=== PATIENT | female | born 1940 | race Caucasian/White ===

== ENCOUNTER 2023-01-09 11:19 | Observation (INO) | payer MEDICARE ==
[~2023-01-09] VITALS: Ht 167.6 cm; Wt 103.9 kg
[~2023-01-09 11:19] MED LIST: ALLOPURINOL300 MG PO; ASPIRIN EC81 MG PO; ATENOLOL50 MG PO; CENTRUM SILVER1 EAC3 PO; CRESTOR10 MG PO; FUROSEMIDE20 MG PO; HYDROCHLOROTHIA25 MG PO; MELOXICAM7.5 MG PO; MULTIVITAMIN PO; NAPROXEN500 MG PO; NORVASC10 MG PO; OMEGA 3 PO; PANTOPRAZOLE SO40 MG PO; TEMAZEPAM30 MG PO
[2023-01-09] MEDS ORDERED: SODIUM CHLORIDE FLUSH 10 ML SYR IV PRN (12:15)
[2023-01-09] MEDS ORDERED: ASPIRIN 81 MG CHEW TAB PO ONE ×2 (12:15→14:00)
[2023-01-09 12:17] LABS: BASOPHILS # (AUTO) 0.1 (0.0-0.1); EOSINOPHILS # (AUTO) 0.4 (0.0-0.4); HEMATOCRIT 36.7 % (34.2-44.1); HEMOGLOBIN 11.6 g/dL (12.0-16.0); LYMPHOCYTES # (AUTO) 2.5 (1.0-3.2); LYMPHOCYTES % 35.5 % (18.0-39.1); MEAN CORPUSCULAR HEMOGLOBIN 29.5 pg (28-32); MEAN CORPUSCULAR HGB CONC 31.6 g/dL (31-35); MEAN CORPUSCULAR VOLUME 93.4 fL (81-99); MONOCYTES # (AUTO) 0.6 (0.2-0.8); MONOCYTES % 8.5 % (4.4-11.3); NEUTROPHILS # (AUTO) 3.4 (2.1-6.9); NEUTROPHILS % 48.7 % (38.7-80.0); PLATELET COUNT 169 x10e3/uL (140-360); RED BLOOD COUNT 3.93 x10e6/uL (3.6-5.1); RED CELL DISTRIBUTION WIDTH 14.8 % (11.7-14.4)
[2023-01-09 12:40] LABS: ALBUMIN 3.7 g/dL (3.5-5.0); ALBUMIN/GLOBULIN RATIO 1.2 (0.8-2.0); ANION GAP 13.1 mmol/L (8-16); CALCIUM 10.5 mg/dL (8.4-10.2); CREATININE, SERUM 1.49 mg/dL (0.57-1.11); POTASSIUM 4.1 mmol/L (3.5-5.1)
[2023-01-09] MEDS ORDERED: ONDANSETRON HCL INJ 2MG/ML 2ML 2 MG/ML VIAL IV PRN (14:00)
[2023-01-09 14:34] LABS: CREATINE KINASE MB 1.2 ng/mL (0-5.0)
[2023-01-09 16:40] VITALS: BP 165/63; PULSE 107; RESP 17; TEMP 97.5; O2SAT 100
[2023-01-09 16:42] VITALS: BP 165/63; PULSE 107; RESP 17; TEMP 97.5; O2SAT 100
[2023-01-09 16:49] VITALS: BP 165/63; PULSE 107; RESP 17; TEMP 97.5; O2SAT 100
[2023-01-09 19:48] LABS: CREATINE KINASE MB 1.3 ng/mL (0-5.0)
[2023-01-09 20:00] VITALS: BP 152/62; PULSE 87; RESP 20; TEMP 97.8; O2SAT 100
[2023-01-09] MEDS ORDERED: TEMAZEPAM 15 MG CAP PO SCH (21:00)
[2023-01-09] MEDS: SIMVASTATIN 20 MG TAB PO SCH (22:08)
[2023-01-10] VITALS (7 sets, daily range): BP systolic 155–196; BP diastolic 65–80; PULSE 40–75; RESP 15–19; TEMP 96.8–98; O2SAT 99–100
[2023-01-10 04:55] LABS: BASOPHILS % 0.5 % (0.0-1.0); EOSINOPHILS # (AUTO) 0.4 (0.0-0.4); EOSINOPHILS % 5.6 % (0.0-6.0); HEMATOCRIT 36.2 % (34.2-44.1); HEMOGLOBIN 11.6 g/dL (12.0-16.0); LYMPHOCYTES # (AUTO) 2.7 (1.0-3.2); LYMPHOCYTES % 35.3 % (18.0-39.1); MEAN CORPUSCULAR HEMOGLOBIN 29.4 pg (28-32); MEAN CORPUSCULAR VOLUME 91.6 fL (81-99); MONOCYTES # (AUTO) 0.6 (0.2-0.8); MONOCYTES % 7.5 % (4.4-11.3); NEUTROPHILS # (AUTO) 3.9 (2.1-6.9); PLATELET COUNT 155 x10e3/uL (140-360); RED BLOOD COUNT 3.95 x10e6/uL (3.6-5.1); RED CELL DISTRIBUTION WIDTH 14.8 % (11.7-14.4)
[2023-01-10 05:16] LABS: ALBUMIN 3.5 g/dL (3.5-5.0); ALBUMIN/GLOBULIN RATIO 1.2 (0.8-2.0); ANION GAP 14.1 mmol/L (8-16); CALCIUM 10.2 mg/dL (8.4-10.2); CREATININE, SERUM 1.38 mg/dL (0.57-1.11); POTASSIUM 4.1 mmol/L (3.5-5.1)
[2023-01-10] MEDS: METOPROLOL TARTRATE INJ 1 MG/ML VIAL IV PRN ×2 (05:26→21:39)
[2023-01-10 06:04] LABS: CHOL/HDL RATIO 3.7 (3.0-3.6)
[2023-01-10] MEDS ORDERED: COREG12.5 MG PO (07:00)
[2023-01-10] MEDS ORDERED: DOCUSATE SODIUM 100 MG CAP PO PRN (08:45)
[2023-01-10] MEDS ORDERED: SIMETHICONE 80 MG CHEW PO PRN (08:45)
[2023-01-10] MEDS: SIMVASTATIN 20 MG TAB PO SCH (09:00)
[2023-01-10] MEDS ORDERED: ATENOLOL 50 MG TAB PO SCH (09:00)
[2023-01-10] MEDS ORDERED: CELEBREX200 MG PO (10:03)
[2023-01-10] MEDS ORDERED: PRAVASTATIN SOD40 MG PO (10:03)
[2023-01-10] MEDS ORDERED: ASPIRIN81 MG PO (10:03)
[2023-01-10] MEDS ORDERED: CLONIDINE1 EACH TOP (10:03)
[2023-01-10] MEDS ORDERED: CLONIDINE HCL0.1 MG PO (10:03)
[2023-01-10] MEDS: PANTOPRAZOLE SOD 40 MG TABEC PO SCH (10:07)
[2023-01-10] MEDS: FUROSEMIDE 20 MG TAB PO SCH (10:07)
[2023-01-10] MEDS: ASPIRIN 325 MG TAB EC PO SCH (10:07)
[2023-01-10] MEDS: ALLOPURINOL 300 MG TAB PO SCH (10:07)
[2023-01-10] MEDS ORDERED: ONDANSETRON HCL 4 MG ORAL DISINTEGRATING TAB PO PRN (11:45)
[2023-01-10] MEDS ORDERED: ENOXAPARIN SOD INJ 40 MG/0.4 ML SYR SC SCH (17:00)
[2023-01-10] MEDS: CARVEDILOL 12.5 MG TAB PO SCH (17:09)
[2023-01-10] MEDS ORDERED: PRAVASTATIN 20 MG TAB PO SCH (21:00)
[2023-01-10] MEDS ORDERED: NON-FORMULARY MEDICATION (Pravastatin Sodium 40 MG) PO SCH (21:00)
[2023-01-10] MEDS ORDERED: TEMAZEPAM 15 MG CAP PO SCH (21:00)
[2023-01-11 00:39] VITALS: BP 138/54; PULSE 67; RESP 17; TEMP 97.3; O2SAT 96
[2023-01-11 04:50] VITALS: BP 159/63; PULSE 89; RESP 19; TEMP 96.5; O2SAT 100
[2023-01-11] MEDS: CARVEDILOL 12.5 MG TAB PO SCH (06:00)
[2023-01-11] MEDS ORDERED: ACETAMINOPHEN 325 MG TAB PO PRN (08:15)
[2023-01-11 08:23] VITALS: BP 159/73; PULSE 47; RESP 15; TEMP 98.1; O2SAT 98
[2023-01-11] MEDS: PANTOPRAZOLE SOD 40 MG TABEC PO SCH (08:26)
[2023-01-11] MEDS: FUROSEMIDE 20 MG TAB PO SCH (08:26)
[2023-01-11] MEDS: ASPIRIN 325 MG TAB EC PO SCH (08:26)
[2023-01-11] MEDS: ALLOPURINOL 300 MG TAB PO SCH (08:26)
[2023-01-11 08:31] VITALS: BP 159/73; PULSE 47; RESP 15; TEMP 98.1; O2SAT 98
[2023-01-11] MEDS ORDERED: FUROSEMIDE INJ 10 MG/ML 4 ML VIAL IV ONE (11:00)
[2023-01-11 11:51] VITALS: BP 134/73; PULSE 70; RESP 18; TEMP 97.9; O2SAT 97
[2023-01-11 12:26] LABS: ANION GAP 12.5 mmol/L (8-16); CALCIUM 10.6 mg/dL (8.4-10.2); CREATININE, SERUM 1.35 mg/dL (0.57-1.11); POTASSIUM 4.5 mmol/L (3.5-5.1)
[2023-01-11] MEDS ORDERED: LASIX40 MG PO (14:05)
== END 2023-01-11 14:30 | disposition home or self-care (01) ==
LOC: ER 11:37 → ERHOLD 14:03 → MED/SURG 15:56
PROVIDERS: ADMIT Internal Medicine; ATTEND Internal Medicine
DX: R07.89 Other chest pain (principal); I13.0 Hypertensive heart and chronic kidney disease with heart failure and stage 1 through stage 4 chronic kidney disease, or unspecified chronic kidney disease; N18.32 Chronic kidney disease, stage 3b; I50.9 Heart failure, unspecified; E78.5 Hyperlipidemia, unspecified; I49.3 Ventricular premature depolarization; I49.1 Atrial premature depolarization; M10.9 Gout, unspecified; Z88.2 Allergy status to sulfonamides; Z20.822 Contact with and (suspected) exposure to COVID-19; Z79.82 Long term (current) use of aspirin; Z79.899 Other long term (current) drug therapy; Z87.440 Personal history of urinary (tract) infections; Z86.2 Personal history of diseases of the blood and blood-forming organs and certain disorders involving the immune mechanism
CPT/HCPCS: 36415 ×2; 71045; 80048; 80053 ×2; 80061; 82550 ×2; 82553 ×2; 83880; 84484 ×2; 85025 ×2; 93005 ×2; 94760; 99284; G0378 ×3; J1650; J1940; S0164 ×2; U0002